=== PATIENT | female | born 1990 | race Caucasian/White ===

== ENCOUNTER 2021-02-21 19:34 | Emergency (ER) | payer MEDICAID ==
[~2021-02-21] VITALS: Ht 167.6 cm; Wt 105.0 kg
[2021-02-21 19:36] VITALS: BP 113/77
[2021-02-21] MEDS ORDERED: DEXAMETHASONE 4MG TABLET PO ONE (20:00)
[2021-02-21 20:31] LABS: CHLORIDE 107 mEq/L (98-107)
[2021-02-21 20:34] LABS: BASOPHILS % 0.2 % (0.0-2.0); HEMATOCRIT. 39.4 % (36.0-48.0); HEMOGLOBIN. 13.6 g/dL (12.0-16.0); LYMPHOCYTES % 24.9 % (20.0-50.0); MEAN CORPUSCULAR HEMOGLOBIN 31.1 pg (28.0-32.0); MEAN CORPUSCULAR VOLUME 90.1 fL (81.0-99.0); MEAN PLATELET VOLUME 9.9 fl (7.4-10.4); MONOCYTES % 10.9 % (2.0-8.0); PLATELET 126 x1000/uL (130-400); RED BLOOD CELL COUNT 4.38 mill/uL (4.2-5.4); RED CELL DISTRIBUTION WIDTH 12.9 % (11.6-14.6)
[2021-02-21 20:38] LABS: HCG SCREEN NEGATIVE
[2021-02-21] MEDS ORDERED: DEXA4TAB MT (20:38)
[2021-02-21] MEDS ORDERED: EPIN0.3P3 IM (20:39)
== END 2021-02-21 20:45 | disposition left against medical advice (07) ==
LOC: ER 19:34
DX: T78.1XXA Other adverse food reactions, not elsewhere classified, initial encounter (principal); R22.0 Localized swelling, mass and lump, head; Z91.013 Allergy to seafood; X58.XXXA Exposure to other specified factors, initial encounter
CPT/HCPCS: 36415; 80048; 84703; 85025; 99291; J8540

== ENCOUNTER 2024-11-15 17:37 | Emergency (ER) | payer MEDICAID, OTHER ==
[~2024-11-15] VITALS: Ht 167.6 cm; Wt 100.0 kg
[~2024-11-15 17:37] MED LIST: DEXA4TAB MT; EPIN0.3P3 IM
[2024-11-15 17:38] VITALS: O2SAT 97
[2024-11-15 18:06] VITALS: TEMP 37
[2024-11-15] MEDS: FAMOTIDINE 20MG/2ML VIAL IV STA (18:06)
[2024-11-15] MEDS: METHYLPREDNISOLONE SOD SUCC 125MG/2ML (ACT-O-VIAL) IV ONE (18:06)
[2024-11-15 19:56] VITALS: BP 123/67; PULSE 90; RESP 16; O2SAT 98
[2024-11-15] MEDS ORDERED: FAMO40TA70 MT (19:59)
[2024-11-15] MEDS ORDERED: P50 MT (19:59)
[2024-11-15] MEDS ORDERED: DIPH50CA42 MT (19:59)
[2024-11-15] MEDS ORDERED: EPIN0.3P3 IM (19:59)
== END 2024-11-15 20:32 | disposition home or self-care (01) ==
LOC: ER 17:37
DX: T78.19XA Other adverse food reactions, not elsewhere classified, initial encounter (principal); E11.9 Type 2 diabetes mellitus without complications; Z91.013 Allergy to seafood; X58.XXXA Exposure to other specified factors, initial encounter
CPT/HCPCS: 99284; 96374; 96375; J2919; J1308